=== PATIENT | female | born 1930 | race African-American/Black ===

== ENCOUNTER → 2018-12-04 | Outpatient (CLI) | payer MEDICARE ==
--- NOTE | 2018-12-04 17:43 | RAD ---
Left leg venous Doppler study: Clinical indications: Left leg swelling and pain for 2 weeks. Findings: Duplex sonography (including rodriguez scale evaluation and color flow and waveform spectral analysis) of the proximal aspect of the greater saphenous vein and the proximal aspect of the profunda femoral vein and the entire length of the common femoral and superficial femoral and popliteal veins and the tibioperoneal trunk and the proximal aspect of the posterior tibial and peroneal veins of the left leg was performed. Normal compressibility, augmentation of color Doppler flow after calf compression, and respiratory variation of Doppler flow is seen. Thus, there are no sonographic findings of deep venous thrombosis within these veins. Impression: There are no sonographic findings of deep venous thrombosis within the veins discussed above of the left lower extremity. Electronically signed by: Jd Julien MD (12/04/2018 5:40 PM) [id number]
--- NOTE | 2018-12-04 23:29 | RAD ---
AP and lateral left tibia and fibula radiographs 12/04/2018 CLINICAL HISTORY: Left leg pain. Two AP and two lateral digital radiographs of the left tibia and fibula were obtained. The patient is post left TKA. No fracture or dislocation of the left tibia or fibula is seen. Moderate enthesophyte formation is seen involving the posterior left calcaneus. IMPRESSION: No fracture or dislocation of the left tibia or fibula is seen. Electronically signed by: Naresh Cano MD (12/04/2018 11:27 PM) [facility]
== END | disposition home or self-care (01) ==
LOC: DXRAD 16:52
PROVIDERS: ATTEND Specialist
DX: M77.52 Other enthesopathy of left foot and ankle (principal); Z96.652 Presence of left artificial knee joint
CPT/HCPCS: 73590; 93971